=== PATIENT | female | born 1950 | race Caucasian/White ===

== ENCOUNTER 2022-12-09 12:45 | Outpatient (CLI) | payer MEDICARE | END 2022-12-09 12:46 | disposition home or self-care (01) | LOC: CSHMAMMO 12:45 | PROVIDERS: ATTEND Family Medicine | DX: M81.0 Age-related osteoporosis without current pathological fracture (principal); M85.851 Other specified disorders of bone density and structure, right thigh; M85.852 Other specified disorders of bone density and structure, left thigh | CPT/HCPCS: 77080 ==

== ENCOUNTER 2024-10-07 09:40 | Outpatient (CLI) | payer MEDICARE | END 2024-10-07 09:41 | disposition home or self-care (01) | LOC: CSHSLEEP 09:40 | PROVIDERS: ATTEND Family Medicine | DX: G47.33 Obstructive sleep apnea (adult) (pediatric) (principal); R53.83 Other fatigue; E66.9 Obesity, unspecified; Z68.35 Body mass index [BMI] 35.0-35.9, adult; R06.83 Snoring; I10 Essential (primary) hypertension; R09.02 Hypoxemia; G47.10 Hypersomnia, unspecified | CPT/HCPCS: 95800 ==